=== PATIENT | male | born 2000 | race Caucasian/White ===

== ENCOUNTER 2020-09-02 21:59 | Emergency (ER) | payer SELFPAY ==
[2020-09-02 22:00] VITALS: BP 157/109; PULSE 105; RESP 18; TEMP 36.7; O2SAT 97; BMI 17.9
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
[2020-09-02] MEDS: sodium chloride 0.9% 1,000 ML 999 ML IV (22:45)
[2020-09-02 22:50] LABS: Basophils % 0.4 %; Eosinophils # 0.1 10^3/uL (0.0-0.8); Eosinophils % 0.7 %; Hematocrit 48.6 % (42.0-52.0); Hemoglobin 16.8 g/dL (11.7-16.6); Lymphocytes # 2.1 10^3/uL (0.8-4.8); Lymphocytes % 27.6 %; Mean Corpuscular HGB Conc 34.6 g/dL (30.0-36.0); Mean Corpuscular Hemoglobin 30.7 pg (28.0-34.0); Mean Corpuscular Volume 88.7 fL (80-94); Mean Platelet Volume 10.9 fL (7.4-10.4); Monocytes # 0.6 10^3/uL (0.2-0.9); Monocytes % 7.3 %; Neutrophils # 4.87 10^3/uL (1.8-7.7); Neutrophils % 63.5 %; Nucleated Red Blood Cells % 0 %; Platelet Count 153 10^3/cmm (130-400); Red Blood Count 5.48 10^6/uL (4.1-5.3); Red Cell Distribution Width 11.4 % (12.1-15.1); White Blood Count 7.7 10^3/uL (4.0-10.0)
[2020-09-02 23:06] LABS: Anion Gap 16.5 (5-19); Blood Urea Nitrogen 11 mg/dL (6-20); Calcium 9.2 mg/dL (8.5-10.5); Carbon Dioxide 24 mmol/L (22-29); Chloride 103 mmol/L (98-107); Glucose 94 mg/dL (65-115); Osmolality Calculated 289 mOsm/kg (285-295); Potassium 3.5 mmol/L (3.5-5.1); Sodium 140 mmol/L (136-145)
[2020-09-02 23:16] LABS: Alcohol Level < 10 mg/dL (0-10)
[2020-09-02 23:20] LABS: Add Urine Microscopic? YES; Bilirubin Urine Neg (Negative); Blood Urine 2+ (Negative); Glucose Urine UA Norm (Normal); Ketones Urine Negative (Negative); Leukocyte Esterase Urine Negative (Negative); Nitrate Urine Negative (Negative); Protein Urine Neg (Negative); Urine Appearance Clear (CLEAR); Urine Color Yellow (Yellow); Urobilinogen Urine 1 mg/dL (Negative); pH Urine 7 (5-7)
[2020-09-02 23:33] LABS: Add Urine Culture? No; Bacteria Urine TRACE /hpf; Hyaline Casts Urine 0-4 /lpf; Mucus Urine 2+ /hpf; RBC Urine 0-4 /hpf (0-2); Squamous Epithelial Cell Urine 0-4 /hpf (0-5); WBC Urine 0-4 /hpf (0-5)
[2020-09-03] LABS: Amphetamines Screen Urine Negative (Negative); Barbiturates Screen Urine Negative (Negative); Benzodiazepines Screen Urine Negative (Negative); Cocaine Screen Urine Negative (Negative); Opiate Screen Urine Negative (Negative); PCP Screen Urine Negative (Negative); THC Screen Urine Positive (Negative)
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
== END 2020-09-03 00:01 | disposition home or self-care (01) ==
PROVIDERS: Emergency Provider Emergency Medicine
DX: S06.0X0A Concussion without loss of consciousness, initial encounter (principal); V43.52XA Car driver injured in collision with other type car in traffic accident, initial encounter
CPT/HCPCS: 70450; 72125; 80048; 80306; 80307; 81001; 85025; 96360; 99283; J7030

== ENCOUNTER 2024-02-19 19:42 | Emergency (ER) | payer SELFPAY ==
[2024-02-19 19:58] VITALS: BP 132/81; PULSE 89; RESP 18; TEMP 36.7; O2SAT 97; BMI 21.7
--- NOTE | 2024-02-19 22:31 | ED_ITS ---
HPI - Skin/Abscess/Foreign Bdy 2 General: Chief complaint: Skin/Abscess/Foreign Body Stated complaint: right leg lump, left arm lump Time Seen by Provider: 02/19/24 22:18 History of Present Illness: Patient comes in today for a inguinal enlargement and a lump to his left arm. Patient reports he has had episodes of this on and off for months now. Patient appears nontoxic. Patient does also endorse occasional abscesses. Related Data Previous Rx's Medication Instructions Recorded doxycycline hyclate 100 mg capsule 100 mg PO BID 14 days #28 caps 02/19/24 Allergies Allergy/AdvReac Type Severity Reaction Status Date / Time No Known Allergies Allergy Verified 09/02/20 22:03 Review of Systems 2 General: Reports: 10 or more systems reviewed and unremarkable except in HPI and below PFSH ED 2 PFSH: Medical History (Updated 02/19/24 @ 23:00 by BRENDON Aponte) Psychiatric care Physical Exam 2 Const: COMMON NORMALS: alert HENMT: COMMON NORMALS: normocephalic HEAD & SCALP: normocephalic Neck/C-Spine: COMMON NORMALS: full ROM Lymph: OTHER: Patient has a large lymph node to the left inner arm and an enlarged lymph node to the right inguinal area. Resp: COMMON NORMALS: normal respiratory effort Cardio: COMMON NORMALS: regular rate RATE: regular rate Back/Pelvis: COMMON NORMALS: thoracic and lumbar spine normal to inspection Extremity: COMMON NORMALS: full ROM Neuro: SENSORIUM/ORIENTATION: Yes alert Skin: COMMON NORMALS: turgor normal GENERAL SKIN EXAM: turgor normal Course 2 Vital Signs: Vital signs: Vital Signs Temperature 98.1 F 02/19/24 19:58 Pulse Rate 89 02/19/24 19:58 Respiratory Rate 18 02/19/24 19:58 Blood Pressure 132/81 02/19/24 19:58 Pulse Oximetry 97 02/19/24 19:58 Oxygen Delivery Me thod Room Air 02/19/24 19:58 MDM - Skin/Abscess/Foreign Bdy Medicial Decision Making 23-year-old male patient comes in with nodule to the right inguinal area and the left inner arm. On exam there is 2 tender nodules that freely mobile to the left inner upper arm and the right inguinal area. No fluctuance is noted in the nodule. Differential diagnosis includes lymphadenitis, abscess, cat scratch fever, tickborne illness. Reviewed exam with patient with recommendations of treatment with doxycycline. CBC and CRP were unremarkable. Tick panel was outstanding. Recommended that patient follow-up with primary care in 2 weeks for recheck and may need possible further evaluation with surgical biopsy. Patient reported understanding. Lab Data 02/19/24 22:52 02/19/24 22:52 Laboratory Results WBC 11.60 10^3/uL (3.29-11.43) H 02/19/24 22:52 RBC 5.23 10^6/uL (3.85-5.65) 02/19/24 22:52 Hgb 16.40 g/dL (11.27-16.99) 02/19/24 22:52 Hct 47.2 % (37-53) 02/19/24 22:52 MCV 90.2 fl (82-101) 02/19/24 22:52 MCH 31.4 pg (27-33) 02/19/24 22:52 MCHC 34.7 g/dL (30-55) 02/19/24 22:52 RDW 11.5 % (12.1-15.1) L 02/19/24 22:52 Plt Count 273 10^3/cmm (157-399) 02/19/24 22:52 MPV 10.2 fL (7.4-10.4) 02/19/24 22:52 Neut % (Auto) 61.1 % 02/19/24 22:52 Lymph % (Auto) 30.5 % 02/19/24 22:52 [place] % (Auto) 6.7 % 02/19/24 22:52 Eos % (Auto) 1.0 % 02/19/24 22:52 Baso % (Auto) 0.5 % 02/19/24 22:52 Neut # (Auto) 7.08 10^3/uL (1.8-7.7) 02/19/24 22:52 Lymph # (Auto) 3.5 10^3/uL (0.8-4.8) 02/19/24 22:52 [place] # (Auto) 0.8 10^3/uL (0.2-0.9) 02/19/24 22:52 Eos # (Auto) 0.1 10^3/uL (0.0-0.8) 02/19/24 22:52 Baso # (Auto) 0.1 10^3/uL (0.0-0.1) 02/19/24 22:52 Nucleated RBC % (auto) 0 % 02/19/24 22:52 Nucleated RBCs # 0.0 /100WBC 02/19/24 22:52 Sodium 141 mmol/L (136-145) 02/19/24 22:52 Potassium 3.7 mmol/L (3.5-5.1) 02/19/24 22:52 Chloride 104 mmol/L (98-107) 02/19/24 22:52 Carbon Dioxide 22 mmol/L (22-29) 02/19/24 22:52 Anion Gap 18.7 (5-19) 02/19/24 22:52 BUN 8 mg/dL (6-20) 02/19/24 22:52 Creatinine 0.8 mg/dL (0.7-1.2) 02/19/24 22:52 GFR Calculation 117.8 mL/min (90-130) 02/19/24 22:52 Glucose 91 mg/dL (65-115) 02/19/24 22:52 Calculated Osmolality 290 mOsm/kg (285-295) 02/19/24 22:52 Calcium 9.3 mg/dL (8.5-10.5) 02/19/24 22:52 Total Bilirubin 0.3 mg/dL (0.15-1.2) 02/19/24 22:52 AST 33 U/L (0-40) 02/19/24 22:52 ALT 19 U/L (0-41) 02/19/24 22:52 Alkaline Phosphatase 92 U/L (40-130) 02/19/24 22:52 Total Protein 8.0 g/dL (6.6-8.7) 02/19/24 22:52 Albumin 5.0 g/dL (3.5-5.2) 02/19/24 22:52 Globulin 3.0 g/dL (1.3-4.6) 02/19/24 22:52 No radiology studies performed this visit Discharge Plan Discharge Patient Disposition: Home Clinical Impression: Acute lymphadenitis of arm Condition: Stable Prescriptions: New doxycycline hyclate 100 mg capsule 100 mg PO BID 14 Days Qty: 28 0RF Discharge Orders: Discharge ED (Routine); Ordered 02/19/24 Ordered By: Shahriar Faulkner Discharge Diet: Usual diet Discharge Activity: Increase activity as tolerated Activity Restrictions/Additional Instructions: Take antibiotics as directed. 1 capsule twice a day for the total of 14 days. Drink plenty of water and fluids. Use warm packs to the area of swelling. Follow-up with primary care in 1 week for recheck. Return to ED for worsening symptoms such as high fever greater than 101, increasing swelling and redness to the arm, or new concerns. Coding Level of Care Code ED Manager Furniture for Whitney Carroll
[2024-02-19 22:55] LABS: Basophils # 0.1 10^3/uL (0.0-0.1); Basophils % 0.5 %; Eosinophils # 0.1 10^3/uL (0.0-0.8); Hematocrit 47.2 % (37-53); Lymphocytes # 3.5 10^3/uL (0.8-4.8); Lymphocytes % 30.5 %; Mean Corpuscular HGB Conc 34.7 g/dL (30-55); Mean Corpuscular Hemoglobin 31.4 pg (27-33); Mean Corpuscular Volume 90.2 fl (82-101); Mean Platelet Volume 10.2 fL (7.4-10.4); Monocytes # 0.8 10^3/uL (0.2-0.9); Monocytes % 6.7 %; Neutrophils # 7.08 10^3/uL (1.8-7.7); Neutrophils % 61.1 %; Nucleated Red Blood Cells % 0 %; Platelet Count 273 10^3/cmm (157-399); Red Blood Count 5.23 10^6/uL (3.85-5.65); Red Cell Distribution Width 11.5 % (12.1-15.1)
[2024-02-19 23:12] LABS: Alanine Aminotransferase 19 U/L (0-41); Alkaline Phosphatase 92 U/L (40-130); Anion Gap 18.7 (5-19); Aspartate Amino Transferase 33 U/L (0-40); Blood Urea Nitrogen 8 mg/dL (6-20); Calcium 9.3 mg/dL (8.5-10.5); Carbon Dioxide 22 mmol/L (22-29); Chloride 104 mmol/L (98-107); Creatinine Clr Calc Pharmacy 150.9175; Glomerular Filtration Rate 117.8 mL/min (90-130); Glucose 91 mg/dL (65-115); Osmolality Calculated 290 mOsm/kg (285-295); Potassium 3.7 mmol/L (3.5-5.1); Sodium 141 mmol/L (136-145); Total Bilirubin 0.3 mg/dL (0.15-1.2)
[2024-02-19 23:34] VITALS: BP 138/76; PULSE 78; RESP 20; O2SAT 99
[2024-02-23 12:48] LABS: Lyme AB Screen <0.90 index
== END 2024-02-19 23:35 | disposition home or self-care (01) ==
PROVIDERS: Emergency Provider Nurse Practitioner Family
DX: L04.2 Acute lymphadenitis of upper limb (principal)
CPT/HCPCS: 80053; 85025; 86618; 86666; 86757; 99283

== ENCOUNTER 2024-06-26 18:32 | Emergency (ER) | payer SELFPAY ==
[2024-06-26 18:36] VITALS: BP 133/72; PULSE 66; RESP 16; TEMP 36.8; O2SAT 100; BMI 21.7
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
[2024-06-26 19:14] VITALS: BP 129/73; PULSE 70; RESP 14; O2SAT 97
[2024-06-26] MEDS: iohexol 350 mg/mL 500 mL Btl (per mL) IV (19:28)
[2024-06-26 19:30] LABS: Add Urine Microscopic? NO
[2024-06-26 19:52] VITALS: PULSE 70; RESP 16; O2SAT 99
[2024-06-26 19:57] LABS: Bilirubin Urine Negative (Negative); Blood Urine Negative (Negative); Glucose Urine UA Negative (Normal); Ketones Urine Negative (Negative); Leukocyte Esterase Urine Negative (Negative); Nitrate Urine Negative (Negative); Protein Urine Negative (Negative); Specific Gravity, Urine 1.013 (1.005-1.030); Urine Appearance Clear (CLEAR); Urine Color Yellow (Yellow); Urobilinogen Urine 0.2 mg/dL (Negative)
[2024-06-26 20:01] LABS: Charge for UA Resulting for Rev
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
[2024-06-26 20:38] VITALS: BP 136/76; PULSE 60; RESP 16; O2SAT 98
[2024-06-26 20:42] LABS: Trichomonas vaginalis (PCR) NOT DETECTED
--- NOTE | 2024-06-26 21:01 | W.ED.MALEGU ---
HPI - Male Genitourinary General: Chief complaint: Urogenital-Male Stated complaint: Fell has an knot around private Time Seen by Provider: 06/26/24 18:44 History of Present Illness: Jonathon John is a 23-year-old male that sustained a straddle type injury approximately 3 weeks ago to his scrotum and penis. Patient reports he fell through a deck straddling a 2 x 4. Since that time patient describes pain in his scrotum, testicles and penis. He notes difficulty getting and maintaining an erection due to pain. Related Data Allergies Allergy/AdvReac Type Severity Reaction Status Date / Time No Known Allergies Allergy Verified 09/02/20 22:03 Review of Systems General: Reports: 10 or more systems reviewed and unremarkable except in HPI and below Physical Exam Const: COMMON NORMALS: no acute distress, average body habitus, patient oriented x3 and healthy appearing GI: COMMON NORMALS: Normal to inspection, nondistended, normoactive bowel sounds present, Soft to palpation and non-tender PALPATION: Yes Soft to palpation : COMMON NORMALS: Yes normal external exam, Yes Testes normal (Tenderness to palpation), Yes scrotum normal (Tenderness to palpation) and Yes no scrotal swelling MALE GROIN/PERINEUM EXAM: No ecchymosis, No edema, No erythema, No inguinal lymphadenopathy, Yes perineal induration and Yes tenderness PENIS: normal penis and circumcised TESTES: Yes testicular lie normal and Yes testicular tenderness Neuro: COMMON NORMALS: patient oriented x3 Course Vital Signs: Vital signs: Vital Signs Temperature 98.2 F 06/26/24 18:36 Pulse Rate 60 06/26/24 20:38 Respiratory Rate 16 06/26/24 20:38 Blood Pressure 136/76 06/26/24 20:38 Pulse Oximetry 98 06/26/24 20:38 Oxygen Delivery Me thod Room Air 06/26/24 18:36 MDM - Male Medical Decision Making Patient is a 23-year-old male that presents to the emergency department with penile testicular and perineal pain. He sustained direct trauma to the area approximately 3 weeks ago when he fell through a deck straddling a 2 x 4 Here in the emergency department underwent urinalysis which was unremarkable. GC chlamydia and trichomoniasis evaluated in pending He underwent an ultrasound of the testes and scrotum which was negative He underwent a CT pelvis with contrast which revealed Asymmetric hyperdensity in the left corpus cavernosum with relative hypoenhancement of the right corpus cavernosum. Reportedly patient symptoms are more left-sided which suggests possible hematoma in the left corpus cavernosum. Differential diagnosis includes intact vascularity in the left cavernosal artery with possible thrombosis of the right cavernosal artery. Further evaluation with penile duplex is recommended. A ultrasound of the penis was ordered. Report states unremarkable and cavernosal artery Consulted [facility] urology?Dr. Teo Schaffer. He believes it is likely a resolving hematoma and does not require any further intervention. Patient needs to follow-up with him in the next couple weeks Lab Data Radiology Impressions Pelvis CT 06/26/24 19:13 IMPRESSION: Asymmetric hyperdensity in the left corpus cavernosum with relative hypoenhancement of the right corpus cavernosum. Reportedly patient symptoms are more left-sided which suggests possible hematoma in the left corpus cavernosum. Differential diagnosis includes intact vascularity in the left cavernosal artery with possible thrombosis of the right cavernosal artery. Further evaluation with penile duplex is recommended. ADDENDUM: 06/26/242017 COMMENT: THIS REPORT CONTAINS FINDINGS THAT MAY BE CRITICAL TO PATIENT CARE. The exam findings were verbally communicated by me to TRINI CARLTON via telephone conference at 8:16 PM BAR HOST on 06/26/2024. The findings were acknowledged and understood. Scrotum Ultrasound 06/26/24 20:35 IMPRESSION: Unremarkable penile ultrasound. ADDENDUM: 06/26/24 1758 UPDATED FINDINGS/IMPRESSION: Case discussed with mammography technologist. The arteries measured are adjacent to the corpus cavernosa, and indicate the dorsal arteries of the penis, which are patent and demonstrate normal waveforms. Neither cavernosal artery was seen during the exam. This could be due to technical limitations, however, the patency of these vessels cannot be confirmed. There is no hematoma or anatomic defect seen. Correlate clinically. If persistent concern, recommend MRI evaluation or repeat ultrasound. COMMENT: THIS REPORT CONTAINS FINDINGS THAT MAY BE CRITICAL TO PATIENT CARE. The exam findings were verbally communicated by me to Dr. Cade via telephone conference at 10:47 PM BAR HOST on 06/26/2024. The findings were acknowledged and understood. Laboratory Results Urine Color Yellow (Yellow) 06/26/24 19:08 Urine Appearance Clear (CLEAR) 06/26/24 19:08 Urine pH 7.0 (5-7) 06/26/24 19:08 Ur Specific [place] 1.013 (1.005-1.030) 06/26/24 19:08 Urine Protein Negative (Negative) 06/26/24 19:08 Urine Glucose (UA) Negative (Normal) 06/26/24 19:08 Urine Ketones Negative (Negative) 06/26/24 19:08 Urine Blood Negative (Negative) 06/26/24 19:08 Urine Nitrate Negative (Negative) 06/26/24 19:08 Urine Bilirubin Negative (Negative) 06/26/24 19:08 Urine Urobilinogen 0.2 mg/dL (Negative) 06/26/24 19:08 Ur Leukocyte Esterase Negative (Negative) 06/26/24 19:08 Amorphous Sediment Not Reportable 06/26/24 19:08 C. trachomatis (PCR) Not detected 06/26/24 19:08 N. gonorrhoeae (PCR) Not detected 06/26/24 19:08 T. vaginalis (PCR) Not detected 06/26/24 19:08 All radiology interpretation(s) finalized by discharge Discharge Plan Discharge Patient Disposition: Home Clinical Impression: Hematoma of scrotum Condition: Stable Discharge Orders: Discharge ED (Routine); Ordered 06/26/24 Ordered By: Trini Christina McTeer Referrals: Teo Schaffer [Other] Discharge Diet: Advance as tolerated Discharge Activity: Resume usual activity Patient Instructions: Opioid Safety, Pain Management Activity Restrictions/Additional Instructions: Please contact Dr. Schaffer's office to set up outpatient follow-up. [facility] urology can be reached at [phone] Print Language: Taiwanese Coding Level of Care Code ED Cut To Length Operator for Whitney Carroll
[2024-06-26 21:06] LABS: Chlamydia Trachomatis NOT DETECTED; Neisseria Gonorrhea NOT DETECTED
[2024-06-26 23:07] VITALS: BP 132/66; PULSE 66; RESP 16; O2SAT 95
== END 2024-06-26 23:04 | disposition home or self-care (01) ==
PROVIDERS: Emergency Provider Nurse Practitioner
DX: S30.22XA Contusion of scrotum and testes, initial encounter (principal); X58.XXXA Exposure to other specified factors, initial encounter
CPT/HCPCS: 72193; 76870; 81003; 87491; 87591; 87661; 93998; 99285